=== PATIENT | female | born 1980 | race Caucasian/White ===

== ENCOUNTER 2023-04-24 17:20 | Emergency (ER) | payer MEDICARE ==
[~2023-04-24] VITALS: Ht 154.9 cm; Wt 66.2 kg
[~2023-04-24 17:20] MED LIST: DICYCLOMINE20 MG PO; K-DUR 1010 MEQ PO
[2023-04-24] MEDS ORDERED: AMOX-CLAV 875-1 EACH PO (20:28)
== END 2023-04-24 20:46 | disposition home or self-care (01) ==
LOC: ED 17:20
DX: J02.8 Acute pharyngitis due to other specified organisms (principal); Z88.6 Allergy status to analgesic agent; I25.2 Old myocardial infarction; F17.200 Nicotine dependence, unspecified, uncomplicated